=== PATIENT | male | born 1970 | race Caucasian/White ===

== ENCOUNTER 2017-11-25 10:46 | Day surgery (SDC) | payer BC ==
[~2017-11-25] VITALS: Ht 180.3 cm; Wt 111.9 kg
[2017-11-25 11:23] VITALS: BP 163/109
[2017-11-25] MEDS ORDERED: LEVO75TA5 PO (11:23)
[2017-11-25] MEDS ORDERED: ASPI-496 PO (11:23)
[2017-11-25] MEDS ORDERED: CHOL500045 PO (11:23)
[2017-11-25] MEDS ORDERED: LOSA1TAB22 PO (11:23)
[2017-11-25] MEDS ORDERED: AMLO10TA2 PO (11:23)
[2017-11-25] MEDS ORDERED: testosterone IM (11:23)
[2017-11-25] MEDS ORDERED: LACTATED RINGERS 1,000 ML IV SCH (11:35)
[2017-11-25] MEDS ORDERED: GABAPENTIN 300 MG CAPSULE PO ONE (12:00)
[2017-11-25] MEDS ORDERED: ONDANSETRON 2MG/ML, 2ML IVPush ONE (12:00)
[2017-11-25] MEDS ORDERED: ACETAMINOPHEN 500 MG TABLET PO ONE (12:00)
[2017-11-25] MEDS ORDERED: OXYcodone IR 5MG TABLET PO ONE (12:00)
[2017-11-25] MEDS ORDERED: MIDAZOLAM 1 MG/ML, 2ML ONE (12:07)
[2017-11-25] MEDS ORDERED: FENTANYL PF 250 MCG/5ML ONE ×2 (12:07→13:06)
[2017-11-25] MEDS ORDERED: BUPIVACAINE/PF 0.5% ONE (12:20)
[2017-11-25] MEDS ORDERED: EPINEPHRINE 1 MG/ML, 1ML ONE (12:20)
[2017-11-25] MEDS ORDERED: TESTOSTERONE IM SCH (12:30)
[2017-11-25] MEDS ORDERED: FENTANYL PF 100 MCG/2ML IV PRN (12:30)
[2017-11-25] MEDS ORDERED: ONDANSETRON 2MG/ML, 2ML IV PRN (12:30)
[2017-11-25] MEDS ORDERED: OXYcodone 5 MG/5 ML ORAL.SOL UDC PO PRN (12:30)
[2017-11-25] MEDS ORDERED: MEPERIDINE/PF 25MG/0.5ML IVPush PRN (12:30)
[2017-11-25] MEDS ORDERED: HYDROmorphone 1 MG/ML, 1ML IV PRN (12:30)
[2017-11-25] MEDS ORDERED: ONDANSETRON 2MG/ML, 2ML ONE (12:44)
[2017-11-25] MEDS ORDERED: PROPOFOL 10 MG/ML, 20ML ONE (12:44)
[2017-11-25] MEDS ORDERED: PROPOFOL 10 MG/ML, 50ML ONE (12:44)
[2017-11-25] MEDS ORDERED: DEXAMETHASONE 4 MG/ML, 1ML ONE (12:44)
[2017-11-25] MEDS ORDERED: CEFAZOLIN 1,000 MG ONE (12:44)
[2017-11-25] MEDS ORDERED: FENTANYL PF 100 MCG/2ML ONE (12:50)
[2017-11-25] MEDS ORDERED: MEPERIDINE/PF 50 MG/ML ONE ×2 (13:59)
[2017-11-25] MEDS ORDERED: TEMPLATE NON-FORMULARY MED. (Amlodipine Besylate (Amlodipine Besylate**) 10 MG) PO SCH (21:00)
[2017-11-26] MEDS ORDERED: LEVOTHYROXINE 75 MCG TABLET PO SCH (09:00)
[2017-11-26] MEDS ORDERED: CHOLECALCIFEROL 5,000 UNIT TAB PO SCH (09:00)
[2017-11-26] MEDS ORDERED: TEMPLATE NON-FORMULARY MED. (Aspirin** (Aspir 81**) 81 MG) PO SCH (09:00)
[2017-11-26] MEDS ORDERED: TEMPLATE NON-FORMULARY MED. (Losartan/Hydrochlorothiazide** (Losartan-Hctz 100-25 Mg Tab PO SCH (09:00)
== END 2017-11-25 15:00 | disposition home or self-care (01) ==
LOC: OUT 10:46
PROVIDERS: ATTEND Orthopaedic Surgery
DX: S46.212A Strain of muscle, fascia and tendon of other parts of biceps, left arm, initial encounter (principal); X58.XXXA Exposure to other specified factors, initial encounter; Y93.89 Activity, other specified; Y92.89 Other specified places as the place of occurrence of the external cause; Y99.8 Other external cause status; Z72.89 Other problems related to lifestyle; Z79.82 Long term (current) use of aspirin; Z98.890 Other specified postprocedural states; Z79.899 Other long term (current) drug therapy
CPT/HCPCS: 24342; C1713; J0171; J0690; J1100; J2175; J2250; J2405; J2704; J3010; J3490; J7120

== ENCOUNTER 2020-01-20 10:40 | Outpatient (CLI) | payer OTHER ==
[~2020-01-20 10:40] MED LIST: AMLO10TA8 PO; ASPI-496 PO; CHOL500045 PO; LEVO75TA5 PO; LOSA1TAB22 PO; testosterone IM
[2020-01-20 11:05] LABS: BASOPHILS % (AUTO) 1 % (0-1); EOSINOPHILS % (AUTO) 2 % (1-7); LYMPHOCYTES % (AUTO) 26 % (22-44); MEAN CORPUSCULAR HEMOGLOBIN 32.9 pg (27.5-34.5); MEAN CORPUSCULAR HGB CONC 34.1 g/dL (33.2-36.2); MEAN PLATELET VOLUME 10.7 fL (7.4-10.4); MONOCYTES % (AUTO) 8 % (2-9); NEUTROPHILS % (AUTO) 62 % (42-75); PLATELET COUNT 224 x10^3/uL (130-400); RED BLOOD COUNT 4.78 x10^6/uL (4.38-5.82)
[2020-01-20 11:06] LABS: ANION GAP 8 mmol/L (5-15); CALCIUM 8.9 mg/dL (8.5-10.1); CHLORIDE 101 mmol/L (98-107)
[2020-01-20 11:16] LABS: ALANINE AMINOTRANSFERASE 71 U/L (12-78); ALKALINE PHOSPHATASE 47 U/L (45-117); BILIRUBIN,TOTAL 1.8 mg/dL (0.2-1.0); CHOL/HDL RATIO 2.6; CHOLESTEROL, TOTAL 209 mg/dL (140-239); CREATININE 0.95 mg/dL (0.7-1.3); FREE T4 (FREE THYROXINE) 0.97 ng/dL (0.76-1.46); HDL CHOL % 38 % (26-37); HDL CHOLESTEROL (DIRECT) 80 mg/dL (40-60); LDL CHOLESTEROL,CALCULATED 104 mg/dL (54-169); LDL/HDL RATIO 1.3 (0.5-3.0); TOTAL PROTEIN 7.5 g/dL (6.4-8.2); TRIGLYCERIDES 126 mg/dL (50-200); VLDL CHOLESTEROL 25 mg/dL (0-25)
[2020-01-20 11:25] LABS: MD SCAN
== END 2020-01-20 23:59 | disposition home or self-care (01) ==
LOC: LAB 10:40
PROVIDERS: ATTEND Nurse Practitioner Family
DX: Z12.5 Encounter for screening for malignant neoplasm of prostate (principal); Z13.220 Encounter for screening for lipoid disorders; Z13.228 Encounter for screening for other metabolic disorders; I10 Essential (primary) hypertension; G47.00 Insomnia, unspecified; G25.0 Essential tremor; E29.1 Testicular hypofunction; E03.9 Hypothyroidism, unspecified; K76.0 Fatty (change of) liver, not elsewhere classified; Z85.46 Personal history of malignant neoplasm of prostate
CPT/HCPCS: 36415; 80053; 80061; 83036; 84153; 84402; 84403; 84439; 84443; 85025